=== PATIENT | male | born 2000 | race Caucasian/White ===

== ENCOUNTER 2019-04-28 11:17 | Emergency (ER) | payer SELFPAY | END 2019-04-28 13:00 | disposition home or self-care (01) | LOC: ERS 11:17 | DX: S00.81XA Abrasion of other part of head, initial encounter (principal); M25.531 Pain in right wrist; V00.131A Fall from skateboard, initial encounter; Y93.51 Activity, roller skating (inline) and skateboarding | CPT/HCPCS: 99283 ==